=== PATIENT | male | born 1955 | race Two or more races ===

== ENCOUNTER 2017-05-05 22:48 | Emergency (ER) | payer MEDICAID, OTHER ==
[~2017-05-05] VITALS: Ht 180.3 cm; Wt 92.1 kg
[2017-05-05] MEDS ORDERED: DEXAMETHASONE SOD PHOSPHATE 10 MG/ML VIAL ONE (22:52)
--- NOTE | 2017-05-05 22:55 | NUR ---
PT [facility]IB[facility] 89 FROM HOME FOR ASTHMA ATTACK. PER EMS GAVE BREATHING TX X3. PT AO3. SOB NOTED. NO NVD AT THIS TIME. PT PLACED ON MONITOR. DR. MATOS AT BEDSIDE. PT WITH EMS BREATHING TX AT THIS TIME.
[2017-05-05] MEDS ORDERED: ALBUTEROL FS 2.5 MG/3 ML VIAL.NEB NEB ONE (23:00)
[2017-05-05] MEDS ORDERED: ACETAMINOPHEN 325 MG TABLET PO ONE (23:00)
[2017-05-05] MEDS ORDERED: DEXAMETHASONE SOD PHOSPHATE 4 MG/ML VIAL IV ONE (23:00)
[2017-05-05] MEDS ORDERED: ACETAMINOPHEN ES 500 MG TABLET ONE (23:01)
--- NOTE | 2017-05-05 23:02 | NUR ---
RT AT BEDSIDE FOR BREATHING TX
[2017-05-05] MEDS ORDERED: ALBUTEROL FS 2.5 MG/3 ML VIAL.NEB ONE (23:04)
--- NOTE | 2017-05-05 23:28 | NUR ---
PT STATES " I FEEL BETTER AFTER THE BREATHINGT TREATMENT"
--- NOTE | 2017-05-05 23:39 | NUR ---
DR. MATOS AT BEDSIDE SPEAKING TO PT REGARDING POC.
--- NOTE | 2017-05-05 23:42 | NUR ---
PT ABLE TO WALK DOWN THE [place] AND BACK, WITH NO SOB NOTED. DR. MATOS AWARE. PT STATES " I FEEL FINE, IM READY TO GO HOME"
[2017-05-06 00:10] VITALS: BP 133/70
--- NOTE | 2017-05-06 00:10 | NUR ---
Patient discharged to home in stable condition. Written and verbal after care instructions given. Patient verbalizes understanding of instruction. ambulatory with a steady gait. pt accompanied by son
== END 2017-05-06 00:11 | disposition home or self-care (01) ==
LOC: ER 22:49
DX: J45.901 Unspecified asthma with (acute) exacerbation (principal); F41.9 Anxiety disorder, unspecified; I10 Essential (primary) hypertension
CPT/HCPCS: A4606; J1100; Z7610